=== PATIENT | female | born 1970 ===

== ENCOUNTER 2018-07-15 10:45 | Outpatient (CLI) | payer MEDICAID | END 2018-07-15 10:46 | disposition home or self-care (01) | LOC: C.PAT 10:45 | DX: L91.0 Hypertrophic scar (principal) ==

== ENCOUNTER 2018-07-16 06:09 | Day surgery (SDC) | payer MEDICAID ==
[2018-07-12 08:29] VITALS: BMI 32.5
[2018-07-16] MEDS ORDERED: Lidocaine Hydrochloride 10 ML INJ ONE (07:20)
[2018-07-16] MEDS ORDERED: ceFAZolin 1 gm in NS 1 GM/100 ML BAG IVPB ONE ×2 (07:20→07:40)
[2018-07-16] MEDS ORDERED: Bupivacaine HCl 0.5% PF (10 ml) Inj ONE (07:20)
[2018-07-16] MEDS ORDERED: Midazolam 2 MG/2 ML VIAL ONE ×2 (07:42→07:58)
[2018-07-16] MEDS ORDERED: Propofol 10 mg/ml Inj (20 ML) ONE (07:45)
[2018-07-16] MEDS ORDERED: HYDROmorphone 0.5 mg/0.5 ml ISec IVP PRN (08:42)
--- NOTE | 2018-07-16 09:05 | PCM.SURG1 ---
Surgeon's Initial Post Op Note - Surgeon's Notes Surgeon: Dr. Nguyen DPM Mosaic Technician: Dr. Karli Virk DPM PGY 1, Dr. Bryan Foster DPM PGY-2 Type of Anesthesia: IV Sedation Anesthesia Administered By: Dr. Charli MEAD Pre-Operative Diagnosis: 1. Painful retained hardware, right foot. 2. Painful hypertrophic, keloid soft tissue mass, right foot Operative Findings: see dictation. materials: 3-0 vicryl, 4-0 vicryl, 4-0 prolene, DBM. intraoperative injectables: 20 cc of 1:1 mixture of 1% lidocaine plain and 0.5% marcaine plain. postoperative injectables: 10 cc of 0.5 marcaine plain Post-Operative Diagnosis: same Operation Performed: 1. Removal of painful retained hardware, right foot. 2. Excision of painful hypertrophic/keloid soft tissue mass, right foot Specimen/Specimens Removed: 1. hardware- screws and plate, right foot Estimated Blood Loss: EBL {In ML}: 1 Blood Products Given: N/A Drains Used: No Drains Post-Op Condition: Good Date of Surgery/Procedure: 07/16/18 Time of Surgery/Procedure: 07:45
[2018-07-16] MEDS ORDERED: Oxycodone/Acetaminophen 5/325 mg Tab PO PRN ×2 (09:10)
[2018-07-16] MEDS ORDERED: MOMETASONE FUROATE 15 GM TP SCH (10:00)
[2018-07-16 11:55] VITALS: BP 133/75; PULSE 79; RESP 16; TEMP 97.9; O2SAT 100
--- NOTE | 2018-07-16 19:31 | OP ---
PROCEDURE DATE: 07/16/2018 PREOPERATIVE DIAGNOSIS: Painful hardware in the right first metatarsal bone. POSTOPERATIVE DIAGNOSIS: Painful hardware in the right first metatarsal bone. PROCEDURES DONE: 1. Painful hypertrophic keloid soft tissue scar of the right foot excision. 2. Right foot removal of painful hardware from first metatarsal bone. SURGEON: Samuel Hills DPM STRUCTURAL FITTER: Celso Virk, PGY-1 STRUCTURAL FITTER 2: Rashel Foster, PGY-2 TYPE OF ANESTHESIA: IV sedation with local anesthesia. ANESTHESIA ADMINISTERED BY: Dr. Augustin. INDICATIONS: The patient is a 48-year-old female with the above diagnosis. The patient has exhausted all the conservative treatments at this time and now requests surgical intervention. The patient signed the consent after careful explanation of risks, benefits, complications, and alternatives for the surgical procedure. No guarantees were given nor implied. N.p.o. status was confirmed prior to taking the patient to OR. PREPARATION: The patient was brought to the operating room and placed on the operating room table in a supine position. Time-out was performed for identification of the correct patient and procedure. After induction of IV sedation, a local block was performed consisting of 20 mL of 1:1 mixture 1% lidocaine plain and 0.5% Marcaine plain. Another 10 mL of lidocaine 1% was used to augment the block intraoperatively. The left foot was then prepped and draped in a normal sterile manner. An ankle tourniquet was used and set on 250 mmHg for achieving hemostasis. DESCRIPTION OF PROCEDURE: Attention was then directed to the right first metatarsal bone where a plate with four screws were present to fix the base wedge osteotomy. An approximately 7 cm elliptical incision was made with a #15 blade to excise the hypertrophic keloid scar. The scar was excised completely down to the level of the subcutaneous tissue. The incision was then deepened through the subcutaneous tissue using sharp and blunt dissection all the way down to the bone. Care was taken to identify and retract all the vital neurovascular structures. The mini-plate was then visualized through the incision. Using a [place] elevator, the soft tissue was dissected from the hardware and the four screws were removed from the plate using screwdriver. Then the plate itself was removed from the first metatarsal bone. Then injection of DBM material was done at the osteotomy site in the proximal portion of the first metatarsal bone. The wound was then flushed with copious amounts of sterile normal saline solution. Then reapproximation and coaptation of subcutaneous tissue layer was done utilizing a #3-0 Vicryl interrupted subcutaneous suture manner and #3-0 Vicryl in a running suture fashion. The skin overlying the surgical incision was reapproximated and coapted using a #4-0 Prolene with simple sutures. Injection of 10 mL of Marcaine 0.5% plain was then done in a Nash block fashion to achieve postoperative analgesia for the patient. Incision site was then draped using Xeroform, DSD, and Coban. POSTOPERATIVE CONDITION: The patient tolerated the anesthesia and the procedure well and then was escorted to the recovery room with vital signs stable and neurovascular status intact to the right lower extremity. This patient will be fully bearing weight in a surgical shoe and is to follow up with Dr. Samuel Hills at his office. CELSO VIRK DPM/GRANT Samuel Hills DPM MTDJames
== END 2018-07-16 11:42 | disposition home or self-care (01) ==
LOC: C.SDS 06:09
PROVIDERS: ATTEND Podiatrist Foot & Ankle Surgery
DX: T84.84XA Pain due to internal orthopedic prosthetic devices, implants and grafts, initial encounter (principal); T84.498D Other mechanical complication of other internal orthopedic devices, implants and grafts, subsequent encounter; L91.0 Hypertrophic scar
CPT/HCPCS: 11426; 20680; 88305; C1713; J0690; J2250; J2704; J3010